=== PATIENT | male | born 1960 | race Caucasian/White ===

== ENCOUNTER 2025-01-21 21:35 | Emergency (ER) | payer OTHER, MEDICAID ==
[~2025-01-21] VITALS: Ht 160 cm; Wt 72.6 kg
--- NOTE | 2025-01-21 21:47 | ERN ---
ED Note History of Present Illness Stated Complaint: FALL Chief Complaint: Upper Extremity Pain/Injury Time Seen by MD: 21:38 Dictation: IS A 64-YEAR-OLD MALE HERE WITH HIS MOTHER WITH COMPLAINTS OF RIGHT SHOULDER PAIN WITH DECREASED RANGE OF MOTION SECONDARY TO A FALL1 HOUR PRIOR TO ARRIVAL. PER THE MOTHER, HE WAS WALKING WHEN HE TRIPPED AND FELL EXTENDED HIS HANDS FORWARD TO STOP HIS FALL. IN HIS NOT ABLE TO RANGES RIGHT UPPER ARM SINCE THE FALL. Allergies: Coded Allergies: Penicillins (Verified Allergy, 10/04/12) Past Medical History Past Medical History: Other Additional Past Medical Hx: DOWNS SYNDROME, SELF CATH Surgical History: Cholecystectomy RN Note Reviewed/Agreed w/PFSH: Yes Review of System Dictation CONSTITUTIONAL: NEGATIVE EXCEPT FOR HPI HEAD/FACE: NEGATIVE EXCEPT FOR HPI EENT: NEGATIVE EXCEPT FOR HPI RESPIRATORY: NEGATIVE EXCEPT FOR HPI GASTROINTESTINAL/ABDOMINAL: NEGATIVE EXCEPT FOR HPI GENITOURINARY: NEGATIVE EXCEPT FOR HPI MUSCULOSKELETAL: NEGATIVE EXCEPT FOR HPI RIGHT SHOULDER PAIN WITH DECREASED RANGE OF MOTION TO RIGHT UPPER EXTREMITY INTEGUMENTARY: NEGATIVE EXCEPT FOR HPI NEUROLOGICAL/PSYCH: NEGATIVE EXCEPT FOR HPI HEMATOLOGIC/LYMPHATIC: NEGATIVE EXCEPT FOR HPI ALL SYSTEMS NEGATIVE, EXCEPT NOTED ABOVE. 13 POINT REVIEW OF SYSTEMS ASSESSED AND ALL NEGATIVE EXCEPT FOR ABOVE. Initial Vital Sign VS Vital Signs Date Time Temp Pulse Resp B/P (MAP) Pulse Ox O2 Delivery O2 Flow Rate FiO2 01/21/25 21:36 97.5 76 20 130/84 100 Room Air Physical Exam Dictation VITAL SIGNS REVIEWED GENERAL APPEARANCE: ALERT, ORIENTED X1-2, N MILD ACUTE DISTRESS, WELL DEVELOPED, NOURISHED. HEAD AND FACE: NON-TRAUMATIC. EYES: PERRL, PINK CONJUNCTIVAS, EYELID NO TRAUMA, ANTERIOR CHAMBER WITH ARCUS SENILIS. EARS: PINNAS INTACT AND NO SIGNS OF TRAUMA OR ERYTHEMA EAR CANALS CLEAR AND NO DISCHARGE TM NO ERYTHEMA NOSE: NO DISCHARGE, NO BLEEDING. OROPHARYNX: MOUTH NORMAL, TONGUE PINK, PHARYNX CLEAR,NO ERYTHEMA, TONSILS NO EXUDATES, NO ABSCESSES NOTED, MUCOUS MEMBRANE MOIST NECK: SUPPLE, NON-TENDER, NO THYROMEGALY, NO MASSES, NO JVD, NO BRUITS BREAST:DEFERRED CHEST:NO TENDERNESS, NO CREPITUS, NO PARADOXICAL MOVEMENT, NO RETRACTIONS LUNGS:CLEAR, WELL-VENTILATED, SYMMETRIC, NO RALES, NO WHEEZING, NO RHONCHI, NO STRIDOR, GOOD BREATH SOUNDS BILATERALLY HEART: REGULAR RATE, REGULAR RHYTHM, NO MURMUR, NO GALLOPS VASCULAR: NO PERIPHERAL EDEMA, ABDOMEN: SOFT, POSITIVE BOWEL SOUNDS, NONDISTENDED, NO GUARDING, NONTENDER, NO REBOUND, NO MASSES NO HEPATOMEGALY, NO SPLENOMEGALY, NO REGAN'S SIGN, NO HERNIAS. RECTAL: DEFERRED GENITAL: DEFERRED NEUROLOGICAL: NORMAL SPEECH, MOTOR FUNCTION INTACT, SENSORY FUNCTION INTACT MUSCULOSKELETAL: RIGHT ANTERIOR FULLNESS NOTED TO SHOULDER WITH DECREASED RANGE OF MOTION ARM. HUMERUS/ELBOW/FOREARM WRIST AND HAND ALL INTACT SKIN: COLOR PINK, DRY, NO TURGOR, NO RASH, NO LACERATIONS, NO ABRASIONS, NO CONTUSIONS. LYMPHATIC: DEFERRED Results (Laboratory/Radiology) Laboratory/Radiology 2207/RIGHT SHOULDER X-RAY DEMONSTRATES AN ANTERIOR DISLOCATION WITHOUT FRACTURE. 2245/SHOULDER IN ANATOMIC POSITION STATUS POST REDUCTION Labs Reviewed?: Yes ED Course ED Course Orders Procedure Category Date Status Time Shoulder Comp 2+Vws Rt RAD 01/21/25 Taken 21:44 Acetaminophen 500mg PHA 01/21/25 Complete Tab (Tylenol 500mg T 22:00 Apply Ice Pack To: CPOE 01/21/25 Transmitted (Er) 21:44 Saline Lock Iv CPOE 01/21/25 Transmitted 22:06 Ketorolac PHA 01/21/25 Complete Tromethamine 30mg/Ml 22:30 Morphine 4mg Syg PHA 01/21/25 Complete (Morphine 4mg Syg) 22:30 Ondansetron 4mg Inj PHA 01/21/25 Complete (Zofran 4mg Inj) 22:30 Shoulder Ltd 1vw Rt RAD 01/21/25 Taken 22:31 Shoulder Immobilizer PRITI 01/21/25 Verified 22:42 Current Medications Medications (Trade) Dose Ordered Sig/Saul Route PRN Reason Start Time Stop Time Status Last Admin Dose Admin Acetaminophen (TYLenol 500MG TAB) 1,000 mg ONCE ONCE PO 01/21/25 22:00 01/21/25 22:01 DC 01/21/25 21:58 Ketorolac Tromethamine (toRADol) 30 mg ONCE ONCE IVP 01/21/25 22:30 01/21/25 22:31 DC 01/21/25 22:19 Morphine Sulfate (morPHINE 4MG SYG) 4 mg ONCE ONCE IVP 01/21/25 22:30 01/21/25 22:31 DC 01/21/25 22:31 Ondansetron HCl (zoFRAN 4MG INJ) 4 mg ONCE ONCE IVP 01/21/25 22:30 01/21/25 22:31 DC 01/21/25 22:18 Vital Signs Date Time Temp Pulse Resp B/P (MAP) Pulse Ox O2 Delivery O2 Flow Rate FiO2 01/21/25 21:36 97.5 76 20 130/84 100 Room Air 2208/IMAGE WAS SHOWN TO PATIENT'S MOTHER AND PATIENT WITH SISTER AT BEDSIDE I EXPLAINED THE NEED FOR A REDUCTION OF THE SHOULDER PATIENT AND FAMILY BOTH AGREED. SHOULDER FILM SHOWING REDUCTION SHOWN TO FAMILY INCLUDING PATIENT. DISTAL NEUROVASCULAR CMS INTACT TO RIGHT HAND PATIENT PLACED IN SHOULDER IMMOBILIZER BY TECH, NEUROVASCULAR CMS INTACT POST PLACEMENT Medical Decision Making MDM MEDICAL DECISION-MAKING BASED ON EMPIRIC TREATMENT FOR SHOULDER PAIN AND X-RAY. PATIENT HAD A RIGHT SHOULDER ANTERIOR DISLOCATION WITH REDUCTION SHOULDER IMMOBILIZER PLACED DISTAL NEUROVASCULAR CMS INTACT POST PLACEMENT PATIENT WILL BE REFERRED TO Procedure Procedure Dictation: 2227/PROCEDURE EXPLAINED TO PATIENT IN HIS FAMILY AT BEDSIDE THEY AGREED TO PROCEED PATIENT GIVEN MORPHINE4 MG IV PUSH ONCE PATIENT STATED HE WAS COMFORTABLE USE TRACTION AND EXTERNAL ROTATION OF RIGHT UPPER EXTREMITY REDUCTION WAS FELT NO FURTHER ANTERIOR FULLNESS AFTER REDUCTION SLING WAS REPLACED AND WE WILL FOLLOW UP FOR POST REDUCTION FILM. DX & DISP Disposition: Discharge Departure Impression: Primary Impression: Dislocation of right shoulder joint Additional Impression: Fall Condition: Stable Scripts Ibuprofen (Ibuprofen 800 mg Tab) 800 Mg Tab 800 MG PO Q8H PRN for fever or pain, #30 TAB 0 Refills Prov: VAMSHI MANCIA Sebas FURNACE OPERATOR AND TENDER 01/21/25 Additional Instructions: FOLLOW-UP WITH PRIMARY CARE PROVIDER IN 1 TO 2 DAYS. TAKE MEDICATIONS DIRECTED HERE IN THE EMERGENCY ROOM. OKAY TO CONTINUE HOME MEDICATIONS UNLESS OTHERWISE DISCUSSED DURING YOUR VISIT IN THE EMERGENCY ROOM TODAY. RETURN TO YOUR NEAREST EMERGENCY ROOM IF SYMPTOMS WORSEN OR IF THERE IS NO IMPROVEMENT. CALL 911 IF YOU NEED IMMEDIATE ASSISTANCE. TAKE TYLENOL OR MOTRIN [id number] NEEDED AND IF NO CONTRAINDICATIONS ARE PRESENT. INCREASE ORAL HYDRATION. A WOUND CULTURE OR URINE CULTURE WAS ORDERED HERE IN THE EMERGENCY ROOM DEPARTMENT PLEASE FOLLOW-UP WITH PRIMARY CARE PROVIDER AND ADVISE THEM TO GET REPEAT PORTS FROM OUR FACILITY. IF YOU HAD ANY HUGO WRAP/SPLINTS THAT WERE APPLIED HERE, PLEASE DO NOT REMOVE THEM UNTIL YOU SEE YOUR PRIMARY CARE OR SPECIALTY. SHOULDER IMMOBILIZER AND NO WEIGHT-BEARING TO RIGHT UPPER EXTREMITY UNTIL CLEARED BY ORTHOPEDICS, CALL FOR AN APPOINTMENT IN 1-2 DAYS. COOL COMPRESSES TO SHOULDER THREE TO 4 TIMES A DAY. TAKE IBUPROFEN WITH FOOD NEEDED FOR PAIN. Referrals: BABATUNDE ROMERO MD (PCP) ZAYDA KESSLER MD Time of Disposition: 22:44 I have reviewed the case, and I agree with, Diagnosis and Plan VAMSHI MANCIA FURNACE OPERATOR AND TENDER Jan 21, 2025 21:47
--- NOTE | 2025-01-21 22:38 | NUR ---
RIGHT SHOULDER DISLOCATION REDUCED BY Rashid MANCIA NP. SHOULDER IMMOBILIZER APPLIED TO R SHOULDER. PATIENT TOLERATED WELL
[2025-01-21] MEDS ORDERED: IBUP-2077 PO (22:46)
--- NOTE | 2025-01-21 22:51 | HMCIMG ---
EXAM: CR right Shoulder, 2 View. CLINICAL HISTORY: RIGHT SHOULDER PAIN STATUS POST SAME LEVEL FALL. COMPARISON: None provided. FINDINGS: BONES: No acute fracture or aggressive appearing osseous lesion. JOINTS: Anterior dislocation of the shoulder. SOFT TISSUES: The soft tissues are unremarkable. IMPRESSION: 1. Anterior dislocation of the right shoulder. 2. No acute fracture. /[place]
[2025-01-21 22:59] VITALS: BP 126/73; PULSE 72; RESP 17; TEMP 98; O2SAT 96
--- NOTE | 2025-01-21 23:40 | HMCIMG ---
EXAM: CR Right Shoulder, 1 view. CLINICAL HISTORY: Status post reduction. COMPARISON: Same-day radiograph. FINDINGS: The post-reduction radiograph shows good anatomic alignment of the glenohumeral joint. No acute fracture. Mild acromioclavicular arthropathy. Mild osteopenia. Grossly unremarkable soft tissues. IMPRESSION: The post-reduction radiograph shows good anatomic alignment of the glenohumeral joint. No acute fracture. No adverse interval changes. /[place]
== END 2025-01-21 23:00 | disposition home or self-care (01) ==
LOC: EDH 21:35
DX: S43.014A Anterior dislocation of right humerus, initial encounter (principal); Q90.9 Down syndrome, unspecified; Z88.0 Allergy status to penicillin; Z90.49 Acquired absence of other specified parts of digestive tract; Z98.890 Other specified postprocedural states; W01.0XXA Fall on same level from slipping, tripping and stumbling without subsequent striking against object, initial encounter; Y93.89 Activity, other specified; Y92.89 Other specified places as the place of occurrence of the external cause; Y99.8 Other external cause status
CPT/HCPCS: 99284; 23650; 96374; 96375; 73020; 73030; J2405; J1885; J2270